=== PATIENT | male | born 1975 | race Caucasian/White ===

== ENCOUNTER 2018-11-27 15:31 | Emergency (ER) | payer BC ==
[2018-11-27] MEDS ORDERED: Pantoprazole IV* 40 MG IV ONE (15:56)
[2018-11-27] MEDS ORDERED: Al Hydrox/Mg Hydrox/Simet LIQ* 30 ML UDC PO ONE (15:57)
[2018-11-27] MEDS ORDERED: Lidocaine 2% VISCOUS* 15 ML UDC PO ONE (15:57)
--- NOTE | 2018-11-27 15:59 | ED ---
HPI Chest Pain - HPI Summary HPI Summary: This patient is a 43 year old M presenting to [facility] with a chief complaint of heartburn for the last week worsening today with pressure-like left chest pain. Chest pain rated 3/10 in severity. Patient further describes symptoms as a pit in my esophagus. Symptoms worsen when lying down. He reports increased beer consumption this past week and beer with dinner this evening, typically resulting in acid-reflux. Today he took Tums, which typically help, but had no relief today. Denies SOB, dizzy, nausea, and lightheadedness. - History of Current Complaint Chief Complaint: EDChestPainROMI Time Seen by Provider: 11/27/18 15:43 Hx Obtained From: Patient Onset/Duration: Started Weeks Ago, Worse Since - today Timing: Constant Initial Severity: Mild Current Severity: Moderate Pain Intensity: 3 Pain Scale Used: 0-10 Numeric Chest Pain Location: Left Lateral Chest Pain Radiates To:: Epigastric Character: Burning, Pressure/Squeezing Aggravating Factor(s): Recumbent Position Alleviating Factor(s): Nothing Associated Signs and Symptoms: Positive: Chest Pain. Negative: Dizziness, Shortness of Breath, Nausea - Allergy/Home Medications Allergies/Adverse Reactions: Allergies Allergy/AdvReac Type Severity Reaction Status Date / Time No Known Allergies Allergy Verified 03/17/18 09:25 PMH/Surg Hx/FS Hx/Imm Hx Endocrine/Hematology History: Denies: Hx Diabetes Cardiovascular History: Denies: Hx Hypertension GI History: Reports: Hx Gastroesophageal Reflux Disease History: Denies: Hx Renal Disease - Surgical History Surgery Procedure, Year, and Place: none reported Infectious Disease History: No Infectious Disease History: Denies: Traveled Outside the [place] in Last 30 Days - Family History Known Family History: Negative: Diabetes - Social History Alcohol Use: Weekly Alcohol Amount: 8 beers on Wednesday, Wednesday, Wednesday Hx Substance Use: No Smoking Status (MU): Former Smoker Review of Systems Constitutional: Negative Positive: Chest Pain Negative: Shortness Of Breath Negative: Nausea All Other Systems Reviewed And Are Negative: Yes Physical Exam - Summary Physical Exam Summary: VITAL SIGNS: Reviewed. GENERAL: Patient is a well-developed and nourished male who is lying comfortable in the stretcher. Patient is not in any acute respiratory distress. HEAD AND FACE: No signs of trauma. No ecchymosis, hematomas or skull depressions. No sinus tenderness. EYES: PERRLA, EOMI x 2, No injected conjunctiva, no nystagmus. EARS: Hearing grossly intact. Ear canals and tympanic membranes are within normal limits. MOUTH: Oropharynx within normal limits. NECK: Supple, trachea is midline, no adenopathy, no JVD, no carotid bruit, no c- spine tenderness, neck with full ROM. CHEST: Symmetric, no tenderness at palpation LUNGS: Clear to auscultation bilaterally. No wheezing or crackles. CVS: Regular rate and rhythm, S1 and S2 present, no murmurs or gallops appreciated. ABDOMEN: Soft, non-tender. No signs of distention. No rebound no guarding, and no masses palpated. Bowel sounds are normal. EXTREMITIES: FROM in all major joints, no edema, no cyanosis or clubbing. NEURO: Alert and oriented x 3. No acute neurological deficits. Speech is normal and follows commands. SKIN: Dry and warm Triage Information Reviewed: Yes Vital Signs On Initial Exam: Initial Vitals Temp Pulse Resp BP Pulse Ox 97.0 F 81 16 149/104 96 11/27/18 15:38 11/27/18 15:38 11/27/18 15:38 11/27/18 15:38 11/27/18 15:38 Vital Signs Reviewed: Yes Diagnostics - Vital Signs Vital Signs Temp Pulse Resp BP Pulse Ox 11/27/18 15:38 97.0 F 81 16 149/104 96 - Laboratory Result Diagrams: 11/27/18 16:05 11/27/18 16:05 Lab Statement: Any lab studies that have been ordered have been reviewed, and results considered in the medical decision making process. - Radiology CXR Radiology Interpretation Completed By: Radiologist Summary of Radiographic Findings: NO ACTIVE CARDIOPULMONARY DISEASE. ED Physician has reviewed this report. - EKG 1546 Cardiac Rate: NL - 76 BPM EKG Rhythm: Sinus Rhythm Summary of EKG Findings: No ST elevations. Nml axis. Re-Evaluation - Re-Evaluation 1 Re-Evaluation Time: 18:35 Change: Improved Comment: Patients reports feeling better after GI cocktail. Chest Pain Course/Dx - Course Assessment/Plan: This patient is a 43-year-old male who presents to the emergency department with a chief complaint of having epigastric and chest burning and pressure. He reports that he has a really bad indigestion, reflux and gastritis every time that he drinks beer for which he usually takes Tums. Today he had dinner and beers and the patient developed the above symptoms. Patient took Tums and unfortunately the symptoms do not improve therefore he decided to come to the emergency room for further workup and management. The EKG shows a normal sinus rhythm without any ST elevations. Blood work without any significant abnormality. In the ED course the patient was given Protonix and a GI cocktail. Blood work without any significant abnormality except for creatinine 1.25, 2 troponins 4 hour appart is 0.00, CK-MB is 1.9. Chest x-ray impression: No active Pulmonary Disease. Other the Patient Was Given the above Medications the Patients Symptoms Have Significantly Improved. At This Point the Patient Is Feeling Better therefore the patient will be discharged home with follow-up with primary care physician. I discussed all the findings and test results with the patient. Patient was instructed to return to the emergency room immediately if any of the symptoms return or worsens. Plan of care was discussed with the patient and understands and agrees. All questions were answered at patient satisfaction. There were no further complaints or concerns. Lung exam before discharge: CTA B/L. Good air exchange. No wheezing or crackles heard. CVS: S1 and S2 present. No murmurs appreciated. Patient is alert and oriented x 3. Patient is hemodynamically stable. Patient will be discharged home with follow up PCP in the next 2-3 day - Chest Pain Differential Diagnosis/HQI/PQRI: Acute NV, ACS, Angina, CHF, Chest Wall, GI Disease, Lower Respiratory Infection - Diagnoses Provider Diagnoses: Atypical chest pain, Gastritis Discharge - Sign-Out/Discharge Documenting (check all that apply): Patient Departure - discharge Patient Received Moderate/Deep Sedation with Procedure: No - Discharge Plan Condition: Stable Disposition: HOME Patient Education Materials: Chest Pain (ED), Gastritis (ED) Referrals: Zeenat Walker MD [Primary Care Provider] - 3 Days Additional Instructions: RETURN TO THE EMERGENCY DEPARTMENT FOR CHANGING OR WORSENING SYMPTOMS. - Billing Disposition and Condition Condition: STABLE Disposition: Home - Attestation Statements Document Initiated by Scribe: Yes Documenting Scribe: Joceline Lyle Provider For Whom Scribe is Documenting (Include Credential): Mihir Díaz MD Scribe Attestation: Joceline Aggarwal scribed for Mihir Díaz MD on 11/28/18 at 0738. Scribe Documentation Reviewed: Yes Provider Attestation: The documentation as recorded by the scribeJoceline accurately reflects the service I personally performed and the decisions made by me, Mihir Díaz MD Status of Scribe Document: Viewed
[2018-11-27 16:17] LABS: ABS Basophils 0 10^3/ul (0-0.2); ABS Eosinophils 0.1 10^3/ul (0-0.6); ABS Monocytes 0.5 10^3/ul (0-0.8); ABS Neutrophils 3.2 10^3/ul (1.5-7.7); ABS Nucleated RBC 0 10^3/ul; Eosinophil % 1.4 %; Hematocrit 44 % (36-46); Hemoglobin 15.3 g/dL (14.0-18.0); Lymphocyte % 33.8 %; Mean Corpuscular HGB Conc 34 g/dL (31-36); Mean Corpuscular Hemoglobin 31 pg (27-31); Mean Corpuscular Volume 91 fL (80-94); Mean Platelet Volume 8.1 fL (7.4-10.4); Nucleated Red Blood Cells % 0.1; Platelet Count 273 10^3/uL (150-450); Red Cell Distribution Width 13 % (10.5-15); White Blood Count 5.8 10^3/uL (3.5-10.8)
[2018-11-27 16:31] LABS: Albumin 4.6 g/dL (3.2-5.2); BUN/Creatinine Ratio 10.4 (8-20); Calcium 9.6 mg/dL (8.6-10.3); EGFR Non-African American 63.7 (>60); Globulin 2.3 g/dL (2-4); Potassium 4.2 mmol/L (3.5-5.0); Total Bilirubin 0.6 mg/dL (0.2-1.0); Total Protein 6.9 g/dL (6.4-8.9)
[2018-11-27 16:36] LABS: CKMB ng/mL 1.9 ng/mL (0.6-6.3)
[2018-11-27 16:46] LABS: TSH (Thyroid Stimulating Horm) 1.45 mcIU/mL (0.34-5.60)
[2018-11-27 18:38] LABS: Urine Appearance Clear; Urine Bilirubin Negative (Negative); Urine Blood Negative (Negative); Urine Color Yellow; Urine Glucose Negative (Negative); Urine Ketones Negative (Negative); Urine Nitrite Negative (Negative); Urine Protein Negative (Negative); Urine Specific Gravity 1.009 (1.010-1.030); Urine Urobilinogen Negative (Negative)
[2018-11-27 20:37] VITALS: BP 140/99
== END 2018-11-27 20:43 | disposition home or self-care (01) ==
LOC: ED 15:31
DX: R07.89 Other chest pain (principal); K29.70 Gastritis, unspecified, without bleeding; Z87.891 Personal history of nicotine dependence
CPT/HCPCS: 36415; 71046; 80053; 81003; 82550; 82553; 83605; 83880; 84443; 84484; 85025; 93005; 96365; 99283; A9270-GY

== ENCOUNTER 2023-04-07 12:50 | Observation (INO) ==
[2023-04-07 13:23] LABS: ABS Lymphocytes 1.6 10^3/uL (1.0-4.8); ABS Monocytes 0.4 10^3/uL (0.0-1.1); ABS Neutrophils 2.9 10^3/uL (1.5-7.6); Eosinophil % 0.8 %; Hematocrit 43.7 % (38-53); Hemoglobin 15.4 g/dL (13.2-16.3); Lymphocyte % 31.6 %; Mean Corpuscular Hemoglobin 31.9 pg (27-33); Mean Corpuscular Hgb Conc 35.3 g/dL (31-36); Mean Corpuscular Volume 90.4 fL (80-97); Mean Platelet Volume 8.3 fL (7.5-11.2); Nucleated Red Blood Cells % 0.1 /100 WBC (0.0-0.4); Platelet Count 319 10^3/uL (150-450); Red Blood Count 4.83 10^6/uL (4.06-5.63); Red Cell Distribution Width 13.1 % (12-17)
[2023-04-07] MEDS ORDERED: Iodixanol (CONTRAST) 320 MG/ML 100 ML SDV IV ONE (13:26)
[2023-04-07 13:37] LABS: Activated Partial Thrombo Time 30.7 seconds (26.0-38.0); INR 0.93 (0.88-1.18)
[2023-04-07 13:40] LABS: Albumin 4.9 g/dL (3.2-5.2); Albumin/Globulin Ratio 1.9 (1-3); Calcium 9.9 mg/dL (8.6-10.3); Creatinine, Serum 1.21 mg/dL (0.67-1.17); Globulin 2.6 g/dL (2-4); HDL Cholesterol 65.5 mg/dL; Potassium 3.9 mmol/L (3.5-5.0); Total Bilirubin 0.7 mg/dL (0.2-1.0); Total Protein 7.5 g/dL (6.4-8.9); eGFR CKD-EPI 74.8 (>60)
[2023-04-07 15:11] LABS: Urine Appearance Clear; Urine Bilirubin Negative (Negative); Urine Blood Negative (Negative); Urine Color Straw; Urine Glucose Negative (Negative); Urine Ketones Negative (Negative); Urine Nitrite Negative (Negative); Urine Protein Negative (Negative); Urine Urobilinogen Negative (Negative)
[2023-04-07 17:38] LABS: Urine Benzodiazepine Screen None Detected (None Detect); Urine Cannabinoids Screen None Detected (None Detect); Urine Opiates Screen None Detected (None Detect)
[2023-04-07 18:54] LABS: TSH Ultra Thyroid Stim Horm 1.51 mcIU/mL (0.34-5.60)
[2023-04-08] MEDS ORDERED: Lidocaine 1% MPF 5 ML VIAL ONE (15:22)
[2023-04-08 16:21] VITALS: BP 136/88
[2023-04-10 10:37] LABS: Free Protein S Antigen 146 % (65 - 160)
[2023-04-10 10:40] LABS: Act Protein C Resist Ratio 2.7 (>or=2.3)
[2023-04-10 12:29] LABS: Coagulation Factor V Assay 121 % (70 - 165)
[2023-04-11 13:14] LABS: Anaplasma phagocytophilum Negative (Negative); B. miyamotoi PCR, B Negative (Negative); Babesia divergens/MO-1 Negative (Negative); Babesia ducani Negative (Negative); Ehrlichia chaffeensis Negative (Negative); Ehrlichia ewingii/canis Negative (Negative); Ehrlichia muris eauclairensis Negative (Negative)
[2023-04-12 11:22] LABS: DRVVT Screen Ratio 0.83 ratio (<1.20); LAC APTT 27 sec (25 - 37); Prothrombin Time(LAC) 10.6 sec (9.4 - 12.5)
[2023-04-12 13:03] LABS: Protein C Antigen, Plasma 109 % (72-160)
[2023-04-13 10:51] LABS: Factor V Leiden Mutation Negative (Negative); Prothrombin 20210 Mutation Negative (Negative)
== END 2023-04-08 19:22 | disposition home or self-care (01) ==
LOC: ED 12:50 → EDHOLD 12:50 → MEDTELE 21:03
PROVIDERS: ADMIT Internal Medicine; ATTEND Internal Medicine